=== PATIENT | male | born 1985 | race Caucasian/White ===

== ENCOUNTER → 2024-09-29 13:18 | Outpatient (BNVA) | payer BC, SELFPAY | PROVIDERS: Visit Provider Nurse Practitioner | DX: S83.242A Other tear of medial meniscus, current injury, left knee, initial encounter (principal); M22.42 Chondromalacia patellae, left knee; S83.412A Sprain of medial collateral ligament of left knee, initial encounter; X58.XXXA Exposure to other specified factors, initial encounter | CPT/HCPCS: 73560; 73565 ==

== ENCOUNTER 2024-10-14 09:35 | Day surgery (SDC) | payer BC, SELFPAY ==
[2024-10-14] VITALS (9 sets, daily range): BP systolic 117–131; BP diastolic 74–85; PULSE 54–75; RESP 16–18; TEMP 36.2–36.7; O2SAT 98–100; BMI 27.8
[2024-10-14] MEDS: sodium chloride 0.9% 1,000 ML 30 ML IV (10:49)
--- NOTE | 2024-10-14 11:35 | ANES.PREANE2 ---
Pre-Anesthetic Assessment Height/Weight: Height 6 ft Weight 205 lb Temp Pulse Resp BP Pulse Ox O2 Del Method 98.0 F 69 18 117/74 98 Room Air 10/14/24 10:36 10/14/24 10:36 10/14/24 10:36 10/14/24 10:36 10/14/24 10:36 10/14/24 10:42 Preop Diagnosis: Meniscus tear Operation Date: 10/14/24 12:00 Proposed Procedures p Knee Arthroscopy Knee Arthroscopy w/ Medial Menisectomy(Left) - Niko Pimentel MD Was Beta Margarita taken within 24 hours: N/A Was Clonidine taken within 24 hours: N/A Last intake: Intake Last Liquid Date 10/13/24 Last Liquid Time 21:30 Last Solid Date 10/13/24 Last Solid Time 21:30 Social No alcohol and No tobacco Exam alert, oriented x 3, clear to auscultation bilaterally and regular rate & rhythm Airway Submandibular: within normal limits Cervical ROM: within normal limits Mallampati: Class I Dentition: full Anesthetic Plan ASA status: 1 Anesthesia: General Other: No prior issues with anesthesia NPO since yesterday evening Denies any cardiac or pulmonary issues METs greater than 4 Plan for general anesthesia with LMA Medications/Allergies Home Medications ?Medication ?Instructions ?Recorded ?Confirmed ?Last Taken ?Type No Known Home Medications 09/29/24 10/08/24 Unknown History Allergies Allergy/AdvReac Type Severity Reaction Status Date / Time No Known Allergies Allergy Verified 10/08/24 11:26 Current Medications Generic Name Dose Route Start Last Admin Trade Name Freq PRN Reason Stop Dose Admin Sodium Chloride 1,000 mls @ 30 mls/hr 10/14/24 10:00 10/14/24 10:49 Sodium Chloride 0.9% IV 10/15/24 09:59 30 mls/hr .Q24H ELOISE Administration PFSH Anesthesia Medical History MCL sprain of left knee Acute medial meniscus tear of left knee Complex tear of the body, posterior junction, and medial aspect of the posterior horn of the medial meniscus. Chondromalacia patellae, left knee Social History Smoking and tobacco/nicotine status: never used tobacco/nicotine Data Anesthesia Cardiac Studies: No Data to Display
--- NOTE | 2024-10-14 12:19 | W.PM.OPSFHP ---
Same Day Surgery H&P Indication for Procedure/HPI DATE OF PROCEDURE: October 14, 2024 CHIEF COMPLAINT/INDICATIONFOR SURGICAL PROCEDURE: Internal derangement left knee PREOP DIAGNOSIS: Meniscus tear PLANNED PROCEDURE: Operation Date: 10/14/24 12:00 Proposed Procedures p Knee Arthroscopy Knee Arthroscopy w/ Medial Menisectomy(Left) - Niko Pimentel MD Medications/Allergies* Home Medications ?Medication ?Instructions ?Recorded ?Confirmed ?Type No Known Home Medications 09/29/24 10/08/24 History Allergies/Adverse Reactions Allergy/AdvReac Type Severity Reaction Status Date / Time No Known Allergies Allergy Verified 10/08/24 11:26 Current Medications: Generic Name Dose Route Start Last Admin Trade Name Freq PRN Reason Stop Dose Admin Sodium Chloride 1,000 mls @ 30 mls/hr 10/14/24 10:00 10/14/24 10:49 Sodium Chloride 0.9% IV 10/15/24 09:59 30 mls/hr .Q24H ELOISE Administration Pertinent History/Comorbid Conditions* Medical History (Updated 10/05/24 @ 14:50 by PANDA Mccall-SHITAL) MCL sprain of left knee Acute medial meniscus tear of left knee Complex tear of the body, posterior junction, and medial aspect of the posterior horn of the medial meniscus. Chondromalacia patellae, left knee Social History Smoking and tobacco/nicotine status: never used tobacco/nicotine Pertinent Exam Findings alert, oriented x 3, clear to auscultation bilaterally, regular rate & rhythm, operative site marked and procedure specific exam findings Recommendations Risks and benefits of procedure reviewed and Patient/family agree to proceed Surgery/Procedure today Coding Level of Care Code Acute Code for g Fwjeanne
[2024-10-14] MEDS: ceFAZolin 2,000 mg SDV 2000 MG IVP (12:26)
[2024-10-14] MEDS: BUPivacaine 0.5% INJ 30 mL 20 ML INJECTION (13:15)
--- NOTE | 2024-10-14 13:47 | P.OP_ITS ---
Operative Report Date of procedure: October 14, 2024 Surgeon: Niko Pimentel MD Procedure: Preop diagnosis: Internal derangement of the left knee, posterior horn medial meniscal tear Postop diagnosis: Torn posterior horn medial meniscus, degenerative tearing central portion lateral meniscus, grade II/III chondromalacia of medial femoral condyle. Procedure: Diagnostic left knee arthroscopy with partial medial meniscectomy, partial lateral meniscectomy, chondroplasty of medial femoral condyle. Surgeon: Niko Pimentel MD Anesthesia: General EBL: None Indications: [place] is a 38 white male who stepped on he has twisting injury to his knee and a sharp stabbing pain and difficulty with ambulation. He is quite active and is very difficult to do any activities especially on uneven ground. He was seen by his primary care provider who then ordered an MRI which demonstrated a partial hernia meniscal tear and therefore was referred on to the orthopedic clinic for further evaluation and treatment. After review of the MRI external patient would benefit from diagnostic knee arthroscopy with partial medial meniscectomy versus repair. I have discussed with him the fact that he is 38 years old and usually meniscal tears are not repairable at the age of 27 however if I find good bleeding tissue I will go ahead and make an attempt to repair this. Otherwise we will debride the area. [place] alternatives discussed with him and he is agreeable to this at this time Procedure: After obtaining consent patient was taken to the operating room placed in the upper table supine position and general anesthetic was ad ministered. Once good anesthesia was achieved both legs placed in a leg medrano and the bed was dropped. Right leg was padded appropriately. Left leg was prepped and draped usual fashion. After surgical timeout standard anterior medial and lateral portals were made a #11 blade. Camera cans placed to the lateral portal. Rin was undertaken starting in the suprapatellar pouch. There is highly inflamed with hypertrophic synovium. Posterior patella is in good repair as well as the IT grade. Medial gutter was inflamed as clear of any abnormalities. Medial compartment demonstrated a large degenerative flap tear of the posterior one third medial meniscus. This is debrided down to stable cartilaginous base with mechanical shaver and small hand instruments. Also noted was grade 2 3 chondromalacia the main central portion of the weightbearing medial femoral condyle. This debrided down with mechanical shaver to stable cartilaginous base. Anterior cruciate ligament was intact and functioning well. Lateral compartment demonstrated some degenerative changes on the inner edge of the central thirds of the meniscus and this was debrided down to stable cartilaginous base mechanical shaver. Lateral meniscus was probed and no further tears were identified. Knee was then washed with copious amounts of irrigation. Cannulas were removed. Wounds are closed with 3-0 Prolene interru pted sutures. Then injected with 20 cc of plain Marcaine for postop pain management. Wounds are clean and dry dressings are from disturbance dressing Webril and an Inocencio wrap for compression. Patient was awakened transferred to cover room stable condition
--- NOTE | 2024-10-14 15:00 | ANE.PACU2 ---
Inpatient post-anesthesia follow up: Airway intact: Yes Vital signs: Temperature 97.1 F Pulse Rate 61 Respiratory Rate 17 Blood Pressure 121/82 Pulse Oximetry 99 Oxygen Delivery Me thod Room Air Oxygen Flow Rate 10 Fraction of Inspir ed Oxygen Hydration adequate: Yes Nausea and vomiting: No Pain level: 1 Mental status: Baseline
== END 2024-10-14 15:03 | disposition home or self-care (01) ==
PROVIDERS: PCP Orthopaedic Surgery; Visit Provider Orthopaedic Surgery
PROC: (CPT 29870; principal; 2024-10-14 12:00)
DX: S83.242A Other tear of medial meniscus, current injury, left knee, initial encounter (principal); S83.282A Other tear of lateral meniscus, current injury, left knee, initial encounter; M94.262 Chondromalacia, left knee; X50.0XXA Overexertion from strenuous movement or load, initial encounter
CPT/HCPCS: 29880; J0690; J1100; J1885; J2250; J2405; J2704; J3010; J3490; J7030; J9999